=== PATIENT | male | born 1990 | race Two or more races ===

== ENCOUNTER 2019-01-24 20:26 | Emergency (ER) | payer MEDICAID ==
[~2019-01-24] VITALS: Ht 170.2 cm; Wt 57.2 kg
[2019-01-24 20:29] VITALS: BP 111/66
[2019-01-24] MEDS ORDERED: ALBUTEROL/IPRATROPIUM 2.5MG/0.5MG, 3 ML NPPB ONE (20:30)
[2019-01-24] MEDS ORDERED: ALBUTEROL/IPRATROPIUM 2.5MG/0.5MG, 3 ML ONE (20:39)
--- NOTE | 2019-01-24 20:43 | NUR ---
FIRST CONTACT WITH PT. PT C/O ASTHMA EXCERBATION EVEN THOUGH USED RESCUE BREATHING PUFF NOT WORKING. PT DENIES ANY PAIN. PT'S AOX4. RESPS EVEN AND UNLABORED. BP/SPO2 MONITORS IN PLACE. CALL LIGHT WITHIN REACH. EDMD AT BEDSIDE TO ASSESS.
--- NOTE | 2019-01-24 20:54 | NUR ---
PT GIVEN DC INSTRUCTIONS AND SCRIPTS. PT EDUCATED REGARDING DC MEDICATIONS. PT'S AOX4. RESPS EVEN AND UNLABORED. PT AMB TO DC WITH STEADY GAIT. NO ACUTE DISTRESS AT DC.
== END 2019-01-24 20:55 | disposition home or self-care (01) ==
LOC: ED 20:49
DX: J45.31 Mild persistent asthma with (acute) exacerbation (principal); J45.32 Mild persistent asthma with status asthmaticus
CPT/HCPCS: 94640; 99283; J7620